=== PATIENT | male | born 1955 | race Caucasian/White ===

== ENCOUNTER 2021-09-16 12:38 | Inpatient (IN) | payer OTHER ==
[~2021-09-16] VITALS: Ht 185.4 cm; Wt 104.3 kg
[2021-09-16 13:26] LABS: HEMATOCRIT 42.2 % (38.2-49.6); LYMPHOCYTES % 9.4 % (18.0-39.1); MEAN CORPUSCULAR HGB CONC 33.2 g/dL (31-35); MEAN CORPUSCULAR VOLUME 93.6 fL (81-99); MONOCYTES % 15.3 % (4.4-11.3); NEUTROPHILS % 69.5 % (38.7-80.0); PLATELET COUNT 274 x10e3/uL (140-360); RED BLOOD COUNT 4.51 x10e6/uL (4.3-5.7); RED CELL DISTRIBUTION WIDTH 13.2 % (11.7-14.4)
[2021-09-16 13:27] LABS: BASOPHILS # (AUTO) 0.1 (0.0-0.1); BASOPHILS % 0.5 % (0.0-1.0); EOSINOPHILS # (AUTO) 0.5 (0.0-0.4); MONOCYTES # (AUTO) 1.6 (0.2-0.8); NEUTROPHILS # (AUTO) 7.3 (2.1-6.9)
[2021-09-16 13:38] LABS: INR 0.96; PARTIAL THROMBOPLASTIN TIME 26.9 seconds (23.8-35.5); PROTHROMBIN TIME 13.7 seconds (11.9-14.5)
[2021-09-16 13:48] LABS: ALANINE AMINOTRANSFERASE 21 IU/L (0-55); ALBUMIN 2.8 g/dL (3.5-5.0); ALBUMIN/GLOBULIN RATIO 0.8 (0.8-2.0); ALKALINE PHOSPHATASE 75 IU/L (40-150); ANION GAP 14.8 mmol/L (8-16); BLOOD UREA NITROGEN 12 mg/dL (7-26); BUN/CREATININE RATIO 13 (6-25); CALCIUM 8.3 mg/dL (8.4-10.2); CARBON DIOXIDE 23 mmol/L (22-29); CHLORIDE 104 mmol/L (98-107); CREATINE KINASE 85 IU/L (30-200); CREATININE, SERUM 0.91 mg/dL (0.72-1.25); GLUCOSE 109 mg/dL (74-118); MAGNESIUM 1.8 MG/DL (1.3-2.1); POTASSIUM 3.8 mmol/L (3.5-5.1); SODIUM 138 mmol/L (136-145)
[2021-09-16 13:58] LABS: B-TYPE NATRIURETIC PEPTIDE2 < 10.0 pg/mL (0-100)
[2021-09-16] MEDS ORDERED: ONDANSETRON HCL INJ 2MG/ML 2ML 2 MG/ML VIAL IV PRN (15:00)
[2021-09-16] MEDS ORDERED: Morphine 4mg INJECTION 4 MG/ML INJ IV PRN (15:00)
[2021-09-16] MEDS: SODIUM CHLORIDE 0.9% 1000ML 1,000 ML IV SCH (15:46)
[2021-09-16] MEDS: Vancomycin IV 1 GM in SODIUM CHLORIDE 0.9% 250ML 250 ML IV SCH (16:06)
[2021-09-16 17:42] VITALS: BP 147/73
[2021-09-16 17:50] VITALS: BP 147/73
[2021-09-16 20:00] VITALS: BP 163/80
[2021-09-16 21:00] VITALS: BP 163/80
[2021-09-17] VITALS (8 sets, daily range): BP systolic 119–159; BP diastolic 47–79
[2021-09-17] MEDS: SODIUM CHLORIDE 0.9% 1000ML 1,000 ML IV SCH ×3 (03:50→20:36)
[2021-09-17 07:29] LABS: BASOPHILS # (AUTO) 0.1 (0.0-0.1); BASOPHILS % 0.5 % (0.0-1.0); EOSINOPHILS # (AUTO) 0.6 (0.0-0.4); EOSINOPHILS % 6.2 % (0.0-6.0); HEMATOCRIT 41.5 % (38.2-49.6); HEMOGLOBIN 13.8 g/dL (14.0-18.0); LYMPHOCYTES # (AUTO) 1.2 (1.0-3.2); LYMPHOCYTES % 12.3 % (18.0-39.1); MEAN CORPUSCULAR HEMOGLOBIN 31.3 pg (28-32); MEAN CORPUSCULAR HGB CONC 33.3 g/dL (31-35); MEAN CORPUSCULAR VOLUME 94.1 fL (81-99); MONOCYTES # (AUTO) 1.3 (0.2-0.8); MONOCYTES % 13.6 % (4.4-11.3); NEUTROPHILS # (AUTO) 6.4 (2.1-6.9); PLATELET COUNT 280 x10e3/uL (140-360); RED BLOOD COUNT 4.41 x10e6/uL (4.3-5.7); RED CELL DISTRIBUTION WIDTH 13.2 % (11.7-14.4)
[2021-09-17 07:48] LABS: ALBUMIN 2.5 g/dL (3.5-5.0); ALBUMIN/GLOBULIN RATIO 0.7 (0.8-2.0); ANION GAP 15.7 mmol/L (8-16); CALCIUM 8.3 mg/dL (8.4-10.2); CREATININE, SERUM 0.81 mg/dL (0.72-1.25); POTASSIUM 3.7 mmol/L (3.5-5.1)
[2021-09-17 07:58] LABS: CREATINE KINASE 88 IU/L (30-200)
[2021-09-17 08:32] LABS: CHOL/HDL RATIO 5.4 (3.9-4.7)
[2021-09-17] MEDS: Vancomycin IV 1 GM in SODIUM CHLORIDE 0.9% 250ML 250 ML IV SCH ×2 (08:36→21:00)
[2021-09-17] MEDS: METHYLPREDNISOLONE SOD SUCC 40 MG/ML VIAL 1ML IV SCH ×2 (08:36→20:36)
[2021-09-17] MEDS: FAMOTIDINE 20 MG TAB PO SCH (16:31)
[2021-09-17] MEDS: ENOXAPARIN 30 MG/0.3 ML SYR SC SCH (16:31)
[2021-09-18] VITALS (8 sets, daily range): BP systolic 121–168; BP diastolic 66–75
[2021-09-18 06:48] LABS: CREATINE KINASE 102 IU/L (30-200)
[2021-09-18] MEDS: SODIUM CHLORIDE 0.9% 1000ML 1,000 ML IV SCH ×2 (07:00→17:00)
[2021-09-18] MEDS: FAMOTIDINE 20 MG TAB PO SCH ×2 (07:30→16:30)
[2021-09-18] MEDS: METHYLPREDNISOLONE SOD SUCC 40 MG/ML VIAL 1ML IV SCH ×2 (09:00→21:50)
[2021-09-18] MEDS: Vancomycin IV 1 GM in SODIUM CHLORIDE 0.9% 250ML 250 ML IV SCH (11:00)
[2021-09-18] MEDS ORDERED: ACETAMINOPHEN 325 MG TAB PO PRN (16:00)
[2021-09-18] MEDS: ENOXAPARIN 30 MG/0.3 ML SYR SC SCH (17:00)
[2021-09-18] MEDS: Vancomycin IV 1.5 GM in SODIUM CHLORIDE 0.9% 250ML 300 ML IV SCH (22:25)
[2021-09-19] VITALS: BP 132/75
[2021-09-19] MEDS ORDERED: CLINDAMYCIN HC150 MG PO (01:35)
[2021-09-19] MEDS ORDERED: PREDNISONE20 MG PO (01:35)
[2021-09-19] MEDS ORDERED: CEFUROXIME250 MG PO (01:35)
[2021-09-19] MEDS: SODIUM CHLORIDE 0.9% 1000ML 1,000 ML IV SCH (02:48)
[2021-09-19 04:00] VITALS: BP 128/68
[2021-09-19 06:40] LABS: BASOPHILS # (AUTO) 0.1 (0.0-0.1); BASOPHILS % 0.4 % (0.0-1.0); EOSINOPHILS % 0.1 % (0.0-6.0); HEMOGLOBIN 13.2 g/dL (14.0-18.0); LYMPHOCYTES # (AUTO) 0.6 (1.0-3.2); LYMPHOCYTES % 4.2 % (18.0-39.1); MEAN CORPUSCULAR HEMOGLOBIN 30.1 pg (28-32); MEAN CORPUSCULAR HGB CONC 32.2 g/dL (31-35); MEAN CORPUSCULAR VOLUME 93.6 fL (81-99); MONOCYTES # (AUTO) 0.8 (0.2-0.8); MONOCYTES % 5.9 % (4.4-11.3); NEUTROPHILS # (AUTO) 11.5 (2.1-6.9); NEUTROPHILS % 88.5 % (38.7-80.0); PLATELET COUNT 316 x10e3/uL (140-360); RED BLOOD COUNT 4.38 x10e6/uL (4.3-5.7)
[2021-09-19 08:06] VITALS: BP 136/75
[2021-09-19] MEDS: Vancomycin IV 1.5 GM in SODIUM CHLORIDE 0.9% 250ML 300 ML IV SCH (09:22)
[2021-09-19] MEDS: METHYLPREDNISOLONE SOD SUCC 40 MG/ML VIAL 1ML IV SCH (09:24)
[2021-09-19] MEDS: FAMOTIDINE 20 MG TAB PO SCH (09:24)
[2021-09-19] MEDS ORDERED: SENNOSIDES 8.6 MG TAB PO SCH (11:00)
[2021-09-19] MEDS ORDERED: DOCUSATE SODIUM 100 MG CAP PO SCH (11:00)
[2021-09-19 11:37] VITALS: BP 168/88
[2021-09-19] MEDS ORDERED: ONDANSETRON HCL 4 MG ORAL DISINTEGRATING TAB PO PRN (12:45)
== END 2021-09-19 14:48 | disposition home or self-care (01) | DRG 603 ==
LOC: ER 13:09 → ERHOLD 15:00 → MED/SURG3 17:20
PROVIDERS: ADMIT Internal Medicine; ATTEND Internal Medicine
DX: L03.116 Cellulitis of left lower limb (principal); L03.115 Cellulitis of right lower limb; I77.6 Arteritis, unspecified; E66.9 Obesity, unspecified; Z68.30 Body mass index [BMI] 30.0-30.9, adult; F17.210 Nicotine dependence, cigarettes, uncomplicated; Z20.822 Contact with and (suspected) exposure to COVID-19
CPT/HCPCS: 36415; 71045; 80053; 80061; 80202; 82550; 82553; 82728; 83036; 83605; 83735; 83880; 84484; 85025; 85610; 85651; 85730; 86021; 86039; 86141; 86160; 87040; 87081; 93005; 94799; 99251; 99284; J0692; J1650; J2270; J2920; J3370; J7030; J7050